=== PATIENT | female | born 1930 | race Two or more races ===

== ENCOUNTER → 2017-08-16 | Outpatient (CLI) | payer MEDICARE, OTHER | END | disposition home or self-care (01) | LOC: HKI 10:56 | DX: M17.12 Unilateral primary osteoarthritis, left knee (principal); M75.51 Bursitis of right shoulder | CPT/HCPCS: 20610 ==

== ENCOUNTER → 2018-03-27 | Outpatient (CLI) | payer MEDICARE, OTHER | END | disposition home or self-care (01) | LOC: HKI 11:16 | DX: M25.562 Pain in left knee (principal); M25.561 Pain in right knee; M17.0 Bilateral primary osteoarthritis of knee | CPT/HCPCS: 20610; 20610-50 ==